=== PATIENT | male | born 1950 | race Caucasian/White ===

== ENCOUNTER → 2016-05-25 | Outpatient (CLI) | payer MEDICARE, OTHER ==
[~2016-05-25] MED LIST: ACIPHEX20 MG PO; ASPIRIN81 MG PO; ATORVASTATIN CA40 MG PO; DILANTIN 100 M100 MG PO; EFFIENT10 MG PO; ISOSORBIDE DINI30 MG PO; LISINOPRIL10 MG PO; METOPROLOL TART25 MG PO; NITROSTAT0.4 MG SL
[2016-05-25 14:32] LABS: BUN/CREATININE RATIO 11 (0-10)
== END ==
LOC: NM 10:30 → ECHO 11:30
PROVIDERS: Internal Medicine Cardiovascular Disease
DX: I25.10 Atherosclerotic heart disease of native coronary artery without angina pectoris (principal); R07.9 Chest pain, unspecified; I10 Essential (primary) hypertension; F17.200 Nicotine dependence, unspecified, uncomplicated; R94.39 Abnormal result of other cardiovascular function study
CPT/HCPCS: ECHO; 36415; 78452; 80053; 80061; 93306; A9502; J2785

== ENCOUNTER → 2016-05-31 | Outpatient (CLI) | payer MEDICARE, OTHER ==
[2016-05-31 11:11] LABS: HEMOGLOBIN 14.8 gm/dl (14.0-17.5); RED BLOOD COUNT 5.05 M/UL (4.20-5.50); WHITE BLOOD COUNT 8.5 K/UL (4.5-11.0)
[2016-05-31 11:27] LABS: BUN/CREATININE RATIO 12 (0-10)
== END ==
LOC: LAB 10:30
PROVIDERS: Internal Medicine Interventional Cardiology
DX: Z01.812 Encounter for preprocedural laboratory examination (principal); Z88.8 Allergy status to other drugs, medicaments and biological substances; R06.02 Shortness of breath; I50.1 Left ventricular failure, unspecified
CPT/HCPCS: 36415; 80048; 85025; 85610; 85730; 93005

== ENCOUNTER → 2016-06-01 | Outpatient (CLI) | payer MEDICARE, OTHER ==
[~2016-06-01] VITALS: Ht 177.8 cm; Wt 82.6 kg
== END | disposition home or self-care (01) ==
LOC: CATH 06:39
DX: I25.118 Atherosclerotic heart disease of native coronary artery with other forms of angina pectoris (principal); I25.718 Atherosclerosis of autologous vein coronary artery bypass graft(s) with other forms of angina pectoris; I10 Essential (primary) hypertension; R94.39 Abnormal result of other cardiovascular function study; E78.5 Hyperlipidemia, unspecified; F17.210 Nicotine dependence, cigarettes, uncomplicated; I25.2 Old myocardial infarction; Z95.1 Presence of aortocoronary bypass graft; Z01.810 Encounter for preprocedural cardiovascular examination; Z95.5 Presence of coronary angioplasty implant and graft; Z88.5 Allergy status to narcotic agent; Z79.82 Long term (current) use of aspirin; Z79.899 Other long term (current) drug therapy; M19.90 Unspecified osteoarthritis, unspecified site; Z91.14 Patient's other noncompliance with medication regimen
CPT/HCPCS: 85347; 93571; C1769; C1887; J0153; J0461; J0583; J1644; J2250; J3010; J7030; Q0163; Q9963

== ENCOUNTER 2016-07-07 23:44 | Emergency (ER) | payer MEDICARE, OTHER ==
[2016-07-08 01:25] LABS: HEMOGLOBIN 15.1 gm/dl (14.0-17.5); RED BLOOD COUNT 5.18 M/UL (4.20-5.50); WHITE BLOOD COUNT 10.3 K/UL (4.5-11.0)
[2016-07-08 01:54] LABS: BUN/CREATININE RATIO 14 (0-10)
== END 2016-07-08 02:46 | disposition home or self-care (01) ==
LOC: ER1 23:44
PROVIDERS: Family Medicine
DX: G40.909 Epilepsy, unspecified, not intractable, without status epilepticus (principal); I25.810 Atherosclerosis of coronary artery bypass graft(s) without angina pectoris; F17.200 Nicotine dependence, unspecified, uncomplicated; Z95.1 Presence of aortocoronary bypass graft; Z95.5 Presence of coronary angioplasty implant and graft; Z88.8 Allergy status to other drugs, medicaments and biological substances; Z79.82 Long term (current) use of aspirin; Z79.899 Other long term (current) drug therapy
CPT/HCPCS: 36415; 70450; 71010; 80053; 80185; 81001; 85025; 93005; 99285; G0480

== ENCOUNTER 2016-11-16 20:42 | Emergency (ER) | payer MEDICARE, OTHER ==
[2016-11-16 21:58] LABS: HEMOGLOBIN 13.1 gm/dl (14.0-17.5); RED BLOOD COUNT 4.56 M/UL (4.20-5.50); WHITE BLOOD COUNT 7.3 K/UL (4.5-11.0)
[2016-11-16 22:24] LABS: BUN/CREATININE RATIO 13 (0-10)
== END 2016-11-17 01:00 | disposition home or self-care (01) ==
LOC: ER1 20:42
PROVIDERS: Emergency Medicine
DX: I11.0 Hypertensive heart disease with heart failure (principal); I50.9 Heart failure, unspecified; J90 Pleural effusion, not elsewhere classified; R11.10 Vomiting, unspecified; I25.2 Old myocardial infarction; I25.810 Atherosclerosis of coronary artery bypass graft(s) without angina pectoris; F17.210 Nicotine dependence, cigarettes, uncomplicated; Z86.73 Personal history of transient ischemic attack (TIA), and cerebral infarction without residual deficits; Z95.1 Presence of aortocoronary bypass graft; Z88.8 Allergy status to other drugs, medicaments and biological substances; Z79.82 Long term (current) use of aspirin
CPT/HCPCS: 36415; 36600; 71020; 80053; 82550; 82553; 82803; 83874; 83880; 84484; 85025; 93005; 96374; 96375; 99285; J1100; J1940

== ENCOUNTER 2020-03-13 07:19 | Emergency (ER) | payer MEDICARE, OTHER ==
[~2020-03-13 07:19] MED LIST changes: +ALBUTEROL1.25 MG/3 INH; +ATORVASTATIN CA20 MG PO; +BUDESONIDE-FO10.2 GM INH; +CEFPODOXIME PR200 MG PO; +COZAAR 25MG TAB25 MG PO; +COZAAR25 MG PO; +DOXYCYCLINE HY100 M2 PO; +DOXYCYCLINE HY100 MG PO; +ELIQUIS 5 MG TAB5 MG PO; +ELIQUIS5 MG PO; +FERREX 150 FOR1 EACH PO; +FUROSEMIDE40 MG PO; -ISOSORBIDE DINI30 MG PO; +ISOSORBIDE MON120 MG PO; +K-DUR TAB 10 M10 MEQ PO; +LEVAQUIN750 MG PO; +LIPITOR80 MG PO; +LOPRESSOR 25 MG25 MG PO; +LOPRESSOR100 MG PO; +NITROSTAT 0.40.4 MG SL; +POTASSIUM CHLO10 ME2 PO; +PREDNISONE 20 M20 MG PO; +PROTONIX 40 MG40 M1 PO; +PROTONIX40 MG PO; +PROVENTIL HFA6.7 GM INH; +RANEXA1000 MG PO; +RANEXA500 MG PO; +TRAMADOL-ACETA1 EACH PO; +US of Gall Bladder; +ZITHROMAX250 MG PO; +ZOFRAN ODT 4 MG4 MG GT; +ZOFRAN4 MG PO
[2020-03-13 07:54] LABS: HEMOGLOBIN 9.3 gm/dl (14.0-17.5); RED BLOOD COUNT 4.04 M/UL (4.20-5.50); WHITE BLOOD COUNT 7.7 K/UL (4.5-11.0)
[2020-03-13 08:11] LABS: BUN/CREATININE RATIO 16 (0-10)
[2020-03-13] MEDS ORDERED: NITROGLYCERIN0.4 MG SL (11:19)
== END 2020-03-13 11:23 | disposition home or self-care (01) ==
LOC: ER1 07:19
PROVIDERS: Family Medicine
DX: R07.9 Chest pain, unspecified (principal); I25.10 Atherosclerotic heart disease of native coronary artery without angina pectoris; J44.9 Chronic obstructive pulmonary disease, unspecified; I50.9 Heart failure, unspecified; I25.2 Old myocardial infarction; F17.200 Nicotine dependence, unspecified, uncomplicated; Z86.73 Personal history of transient ischemic attack (TIA), and cerebral infarction without residual deficits; Z99.81 Dependence on supplemental oxygen
CPT/HCPCS: 36600; 71045; 80053; 82550; 82553; 82803; 83874; 83880; 84484; 85025; 93005; 94660; 94760; 99285

== ENCOUNTER 2020-03-18 05:14 | Emergency (ER) | payer MEDICARE, OTHER ==
[~2020-03-18 05:14] MED LIST changes: +NITROGLYCERIN0.4 MG SL
[2020-03-18 06:01] LABS: HEMOGLOBIN 9.1 gm/dl (14.0-17.5); RED BLOOD COUNT 3.78 M/UL (4.20-5.50); WHITE BLOOD COUNT 6.6 K/UL (4.5-11.0)
== END 2020-03-18 07:44 | disposition left against medical advice (07) ==
LOC: ER1 05:14
PROVIDERS: Family Medicine
DX: I50.9 Heart failure, unspecified (principal); R16.0 Hepatomegaly, not elsewhere classified; I48.91 Unspecified atrial fibrillation; I25.2 Old myocardial infarction; F17.200 Nicotine dependence, unspecified, uncomplicated; Z99.81 Dependence on supplemental oxygen; Z88.5 Allergy status to narcotic agent; Z85.028 Personal history of other malignant neoplasm of stomach; Z86.16 Personal history of COVID-19; Z53.20 Procedure and treatment not carried out because of patient's decision for unspecified reasons
CPT/HCPCS: 71045; 80053; 82550; 82553; 83874; 83880; 84484; 85025; 93005; 96374; 99285; J1940

== ENCOUNTER 2020-03-19 23:25 | Emergency (ER) | payer MEDICARE, OTHER | END 2020-03-20 00:14 | disposition left against medical advice (07) | LOC: ER1 23:25 | DX: M79.602 Pain in left arm (principal); Z53.21 Procedure and treatment not carried out due to patient leaving prior to being seen by health care provider | CPT/HCPCS: 93005 ==

== ENCOUNTER → 2020-03-25 | Outpatient (CLI) | payer MEDICARE, OTHER | LOC: US 10:36 | DX: Z01.818 Encounter for other preprocedural examination (principal); R18.0 Malignant ascites | CPT/HCPCS: 36415; 76705; 85049; 85610; 85730 ==